=== PATIENT | female | born 1985 | race Caucasian/White ===

== ENCOUNTER 2022-01-09 20:10 | Observation (INO) | payer OTHER ==
[~2022-01-09] VITALS: Ht 157.5 cm; Wt 78.0 kg
== END 2022-01-09 22:52 | disposition home or self-care (01) ==
LOC: SPU 20:10
PROVIDERS: ADMIT Obstetrics & Gynecology; ATTEND Obstetrics & Gynecology
DX: O26.893 Other specified pregnancy related conditions, third trimester (principal); O62.9 Abnormality of forces of labor, unspecified; Z3A.38 38 weeks gestation of pregnancy
CPT/HCPCS: 81002; G0379; G0378